=== PATIENT | female | born 1990 | race Two or more races ===

== ENCOUNTER 2019-08-30 09:51 | Emergency (ER) | payer OTHER ==
[~2019-08-30] VITALS: Ht 170.2 cm; Wt 69.4 kg
[2019-08-30] MEDS ORDERED: SODIUM CHLORIDE 0.9% 1,000 ML IVB ONE (10:00)
[2019-08-30] MEDS ORDERED: ONDANSETRON HCL 4 MG/2 ML VIAL IV ONE (10:00)
[2019-08-30] MEDS ORDERED: IBUPROFEN 600 MG TAB PO ONE (10:00)
[2019-08-30] MEDS ORDERED: MORPHINE SULFATE 4 MG/ML SYR/VIAL IV ONE (10:00)
[2019-08-30 10:16] LABS: Eosinophils # (auto) 0 uL; Monocytes # (auto) 0.8 uL
[2019-08-30 10:18] LABS: Basophils # (auto) 0.1 uL; Basophils % (auto) 0.5 % (0.0-2.0); Eosinophils % (auto) 0.3 % (0.0-7.0); Hematocrit 33.6 % (36.0-46.0); Hemoglobin 10.9 g/dL (12.2-16.2); Lymphocytes # (auto) 1.4 uL; Lymphocytes % (auto) 10.7 % (10.0-50.0); Mean Corpuscular Hemoglobin 25.9 pg (28.0-32.0); Mean Corpuscular Hgb Conc. 32.3 g/dL (32.0-36.0); Mean Corpuscular Volume 80.1 fL (80.0-100.0); Monocytes % (auto) 6.4 % (0.0-12.0); Neutrophils # (auto) 10.4 uL; Neutrophils % (auto) 82.1 % (37.0-80.0); Platelet Count (auto) 232 10^3/uL (140-450); Red Blood Cells 4.19 10^6/uL (4.0-5.20); Red Cell Distribution Width 17.6 % (11.8-14.3); White Blood Cell 12.7 10^3/uL (4.4-10.8)
[2019-08-30 10:32] LABS: Albumin 3.1 g/dL (3.4-5.0); Calcium 8.5 mg/dL (8.5-10.1); Potassium 3.3 mmol/L (3.5-5.1)
[2019-08-30 10:37] LABS: BUN/Creatinine Ratio 8.8; Bilirubin, Total 0.4 mg/dL (0.2-1.0); Total Protein 8.3 g/dL (6.4-8.2)
[2019-08-30 12:23] LABS: Urine Bacteria NONE SEEN /hpf (None Seen); Urine Blood 2+ /uL (Negative); Urine Mucus FEW (None Seen); Urine Specific Gravity 1.015 (1.001-1.035); Urine WBC 1496 /hpf (0 - 5); Urine WBC Clumps PRESENT /hpf (None Seen)
[2019-08-30] MEDS ORDERED: cefTRIAXone 1GM/50ML D5W 50 ML IV ONE (14:15)
[2019-08-30] MEDS ORDERED: KETOROLAC TROMETH 30 MG/ML 1ML VIAL IV ONE (16:00)
[2019-08-30 16:05] VITALS: BP 116/71
== END 2019-08-30 17:30 | disposition home or self-care (01) ==
LOC: ER 09:54
DX: N10 Acute pyelonephritis (principal); R11.2 Nausea with vomiting, unspecified
CPT/HCPCS: 36415; 74176; 80053; 81001; 85025; 94761; 96361; 96365; 96375; 99284; J0696; J1885; J2270; J2405; J7030

== ENCOUNTER 2022-03-11 21:27 | Emergency (ER) | payer OTHER ==
[~2022-03-11] VITALS: Ht 170.2 cm; Wt 86.2 kg
[2022-03-12 05:48] VITALS: BP 113/69
[2022-03-12] MEDS ORDERED: methylPREDNISolone SOD SUCC 125 MG/2 ML VL IM ONE (06:45)
[2022-03-12] MEDS ORDERED: ACETAMINOPHEN 500 MG TAB PO ONE ×2 (06:45→07:15)
[2022-03-12] MEDS ORDERED: cefTRIAXone SOD 1,000 MG VL IM ONE (06:45)
[2022-03-12] MEDS ORDERED: LIDO2SOL23 MT (07:01)
[2022-03-12] MEDS ORDERED: AZIT500T66 PO (07:01)
== END 2022-03-12 07:22 | disposition home or self-care (01) ==
LOC: ER 21:27
DX: J03.90 Acute tonsillitis, unspecified (principal); Z79.2 Long term (current) use of antibiotics; Z79.899 Other long term (current) drug therapy
CPT/HCPCS: 96372; 99284; J0696; J2930

== ENCOUNTER 2022-11-23 20:07 | Emergency (ER) | payer OTHER ==
[~2022-11-23] VITALS: Ht 167.6 cm; Wt 92.7 kg
[~2022-11-23 20:07] MED LIST: AZIT500T66 PO; LIDO2SOL23 MT
[2022-11-23 20:50] VITALS: BP 118/83
[2022-11-23] MEDS ORDERED: KETOROLAC TROMETH 30 MG/ML 1ML VIAL IM ONE (22:45)
== END 2022-11-23 23:10 | disposition home or self-care (01) ==
LOC: ER 20:07
DX: J03.00 Acute streptococcal tonsillitis, unspecified (principal); Z20.822 Contact with and (suspected) exposure to COVID-19
CPT/HCPCS: 36415; 87426; 87804; 87880; 96372; 99283; J1885